=== PATIENT | male | born 1970 | race African-American/Black ===

== ENCOUNTER 2019-12-11 17:44 | Inpatient (IN) | payer MEDICAID ==
[~2019-12-11] VITALS: Ht 190.5 cm; Wt 122.5 kg
[~2019-12-11 17:44] MED LIST: ALPR0.5T7 PO; QUET100T4 PO
--- NOTE | 2019-12-11 18:00 | NUR ---
BED ADJUSTED TO PT LYING FLAT WITH FOB SLIGHTLY ELEVATED WHICH SEEMS TO RELIEVE SOME PRESSURE AND PAIN TO LOW BACK, HIPS AND LEGS. AWAITING ERP TO SEE. CALL LIGHT WITHIN REACH.
[2019-12-11] MEDS ORDERED: HYDROmorphone 1 MG/ML, 1ML INJ IM ONE ×2 (19:00→20:00)
[2019-12-11] MEDS ORDERED: LIDODERM 5% PATCH TD ONE ×2 (19:00→19:14)
[2019-12-11] MEDS ORDERED: DIAZEPAM 5 MG TABLET PO ONE (19:00)
--- NOTE | 2019-12-11 19:06 | NUR ---
PT MEDICATED PER ERP ORDER. PT TO XRAY.
--- NOTE | 2019-12-11 19:48 | NUR ---
XRAY RESULTS BACK, PT FOR RECHECK.
[2019-12-11] MEDS ORDERED: ACETAMINOPHEN 500 MG TABLET PO ONE (20:00)
[2019-12-11] MEDS ORDERED: ACETAMINOPHEN 500 MG TABLET ONE (20:01)
[2019-12-11] MEDS ORDERED: HYDROmorphone 2 MG/ML, 1ML ONE (20:01)
[2019-12-11] MEDS ORDERED: MAALOX/HYOSCYAMINE/LIDOCAINE 45 ML BTL ONE (20:05)
--- NOTE | 2019-12-11 20:20 | NUR ---
TYLENOL GIVEN PER ERP ORDER. IV PLACED, DILAUDID GIVEN PER ERP ORDER FOR PAIN RATED 7/10, PT UNABLE TO SIT UP OR STAND. MED REQUEST TO PHARM FOR ROBAXIN IV. CALL LIGHT WITHIN REACH. PULSE OX AND BP IN PLACE, VSS.
[2019-12-11] MEDS ORDERED: HYDROmorphone 1 MG/ML, 1ML INJ IV ONE (20:30)
[2019-12-11] MEDS ORDERED: METHOCARBAMOL 1,000 MG in DEXTROSE 5% 100 ML IV ONE (20:30)
--- NOTE | 2019-12-11 20:48 | NUR ---
PT SLEEPING, DESAT TO 80%. OXYGEN PLACED AT 2LITERS VIA NC. CALL LIGHT WITHIN REACH.
--- NOTE | 2019-12-11 20:57 | NUR ---
RECEIVED REPORT FROM JOSE GRIMALDO. ASSUMING CARE AT THIS TIME. PROVIDER AT BEDSIDE TO UPDATE PT ON POC. PT STATES HE IS FEELING BETTER AFTER MEDS.
--- NOTE | 2019-12-11 21:19 | NUR ---
PT ATTEMPTED TO SIT EDGE OF BED, WITHOUT SUCCESS. BACK SPASMING TOO MUCH TO MOVE. PROVIDER NOTIFIED.
[2019-12-11] MEDS ORDERED: MAALOX/HYOSCYAMINE/LIDOCAINE 45 ML BTL PO ONE (22:00)
--- NOTE | 2019-12-11 22:13 | NUR ---
HOSPITALIST AT BEDSIDE
--- NOTE | 2019-12-11 22:20 | NUR ---
REPORT GIVEN TO ALLYSSA GRIMALDO.
[2019-12-11] MEDS ORDERED: BISACODYL 10 MG SUPP PR PRN (22:30)
[2019-12-11] MEDS ORDERED: LIDODERM 5% PATCH TD PRN (22:30)
[2019-12-11] MEDS ORDERED: POLYETHYLENE GLYCOL 17 GM PACKET PO PRN (22:30)
[2019-12-11] MEDS ORDERED: HYDROmorphone 2 MG/ML, 1ML IVPush PRN (22:30)
[2019-12-11] MEDS ORDERED: ONDANSETRON ODT 4 MG PO PRN (22:30)
[2019-12-11] MEDS ORDERED: ACETAMINOPHEN 500 MG TABLET PO PRN (22:30)
[2019-12-11] MEDS: METHOCARBAMOL 500 MG TABLET PO PRN (22:51)
[2019-12-12 00:39] VITALS: BP 119/81
[2019-12-12] MEDS: KETOROLAC 30 MG/1 ML IV PRN ×3 (04:50→20:49)
[2019-12-12] MEDS: SODIUM CHLORIDE FLUSH 10ML SYR IVF SCH ×2 (09:14→20:49)
[2019-12-12] MEDS: QUETIAPINE 100MG TABLET PO SCH (09:14)
[2019-12-12] MEDS: SENNA/DOCUSATE TABLET PO SCH (09:14)
[2019-12-12 09:16] VITALS: BP 118/51
[2019-12-12] MEDS ORDERED: LORazepam 2 MG/ML, 1ML IVPush ONE (09:30)
[2019-12-12] MEDS: DEXAMETHASONE 4 MG TABLET PO SCH ×2 (11:07→17:16)
[2019-12-12] MEDS: ACETAMINOPHEN 500 MG TABLET PO SCH ×2 (11:07→17:16)
[2019-12-12] MEDS: GABAPENTIN 300 MG CAPSULE PO SCH ×3 (11:21→20:48)
[2019-12-12 12:47] VITALS: BP 112/70
[2019-12-12] MEDS: METHOCARBAMOL 500 MG TABLET PO PRN (13:57)
[2019-12-12] MEDS ORDERED: MAALOX/HYOSCYAMINE/LIDOCAINE 45 ML BTL PO PRN (15:00)
[2019-12-12 19:23] VITALS: BP 119/73
[2019-12-13] MEDS: QUETIAPINE 100MG TABLET PO SCH (00:29)
[2019-12-13 00:44] VITALS: BP 129/79
[2019-12-13] MEDS: ACETAMINOPHEN 500 MG TABLET PO SCH ×3 (01:30→17:01)
[2019-12-13] MEDS: KETOROLAC 30 MG/1 ML IV PRN ×3 (03:19→15:25)
[2019-12-13 08:11] VITALS: BP 132/82
[2019-12-13] MEDS: DEXAMETHASONE 4 MG TABLET PO SCH ×3 (08:18→17:01)
[2019-12-13] MEDS: GABAPENTIN 300 MG CAPSULE PO SCH ×2 (08:18→17:01)
[2019-12-13] MEDS: SENNA/DOCUSATE TABLET PO SCH (08:19)
[2019-12-13] MEDS: SODIUM CHLORIDE FLUSH 10ML SYR IVF SCH (08:20)
[2019-12-13] MEDS ORDERED: GABA300C PO (10:59)
[2019-12-13] MEDS ORDERED: NAPR-996 PO (10:59)
[2019-12-13] MEDS ORDERED: DEXA4TAB66 PO (10:59)
[2019-12-13] MEDS ORDERED: METH500T7 PO (10:59)
[2019-12-13] MEDS ORDERED: LIDO700A20 TD (10:59)
[2019-12-13] MEDS: METHOCARBAMOL 500 MG TABLET PO PRN (12:10)
[2019-12-13 12:17] VITALS: BP 127/81
== END 2019-12-13 18:21 | disposition home or self-care (01) | DRG 347 ==
LOC: ED 18:33 → EDIP 21:53 → 4NW 22:39
PROVIDERS: ADMIT Student in an Organized Health Care Education/Training Program; ATTEND Internal Medicine
DX: M51.17 Intervertebral disc disorders with radiculopathy, lumbosacral region (principal); F12.90 Cannabis use, unspecified, uncomplicated; E66.9 Obesity, unspecified; F17.200 Nicotine dependence, unspecified, uncomplicated; F43.10 Post-traumatic stress disorder, unspecified; K21.9 Gastro-esophageal reflux disease without esophagitis; M47.816 Spondylosis without myelopathy or radiculopathy, lumbar region; Z82.49 Family history of ischemic heart disease and other diseases of the circulatory system; X50.0XXA Overexertion from strenuous movement or load, initial encounter; Y99.0 Civilian activity done for income or pay; Z83.3 Family history of diabetes mellitus; Z68.38 Body mass index [BMI] 38.0-38.9, adult; Z88.8 Allergy status to other drugs, medicaments and biological substances; Y92.89 Other specified places as the place of occurrence of the external cause
CPT/HCPCS: 72110; 72148; G0378; J1170; J1885; J2800